=== PATIENT | male | born 1985 | race Caucasian/White ===

== ENCOUNTER 2020-09-02 01:30 | Inpatient (IN) | payer MEDICAID ==
[~2020-09-02] VITALS: Ht 167.6 cm; Wt 55.7 kg
--- NOTE | 2020-09-02 01:53 | NUR ---
Pt states having mild abd pain for the last 2 days. Pt states tonight pain got a lot worse, had N/V and came to ER. EMS gave 100 fent and 5mg of Morhine with minimal relief. Pt with IV in place. Warm blanket given. Pt on monitor.
[2020-09-02] MEDS ORDERED: MORPHINE SULFATE 4 MG/ML, 1ML IVPush PRN (02:00)
[2020-09-02] MEDS ORDERED: ONDANSETRON 2MG/ML, 2ML IVPush ONE (02:00)
[2020-09-02] MEDS ORDERED: MORPHINE SULFATE 4 MG/ML, 1ML ONE (02:11)
[2020-09-02] MEDS ORDERED: ONDANSETRON 2MG/ML, 2ML ONE ×2 (02:11→17:15)
--- NOTE | 2020-09-02 02:24 | NUR ---
Pt back from CT. Pt medicated per order for pain. Pt unable to provide UA at this time. Will continue to monitor. Pt on monitor.
[2020-09-02 02:26] LABS: BASOPHILS % (AUTO) 1 % (0-1); EOSINOPHILS % (AUTO) 1 % (1-7); LYMPHOCYTES % (AUTO) 23 % (22-44); MEAN CORPUSCULAR HEMOGLOBIN 29.7 pg (27.5-34.5); MEAN CORPUSCULAR HGB CONC 33.4 g/dL (33.2-36.2); MONOCYTES % (AUTO) 8 % (2-9); NEUTROPHILS % (AUTO) 67 % (42-75); PLATELET COUNT 341 x10^3/uL (130-400); RED BLOOD COUNT 4.63 x10^6/uL (4.38-5.82)
[2020-09-02 02:27] LABS: MD NO
[2020-09-02 02:36] LABS: ALANINE AMINOTRANSFERASE 38 U/L (12-78); ALBUMIN 3.5 g/dL (3.4-5.0); ANION GAP 6 mmol/L (5-15); CALCIUM 8.8 mg/dL (8.5-10.1); CHLORIDE 108 mmol/L (98-107); CREATININE 0.89 mg/dL (0.7-1.3)
[2020-09-02 02:38] LABS: ALKALINE PHOSPHATASE 81 U/L (45-117); BILIRUBIN,TOTAL 0.2 mg/dL (0.2-1.0); TOTAL PROTEIN 7.3 g/dL (6.4-8.2)
--- NOTE | 2020-09-02 03:26 | NUR ---
Pt stood at bedside and used urinal. UA sent to lab. Pt back in bed and on monitor.
[2020-09-02 03:27] LABS: MICROSCOPIC AUTO
--- NOTE | 2020-09-02 03:51 | NUR ---
Pt states pain has subsided. Just has some pressure. Pt calm in bed. Will monitor.
--- NOTE | 2020-09-02 04:59 | NUR ---
attempt x 1 to call report. No answer
[2020-09-02] MEDS ORDERED: HYDROmorphone 1 MG/ML, 1ML INJ IVPush PRN ×2 (05:00→17:00)
[2020-09-02] MEDS ORDERED: ONDANSETRON 2MG/ML, 2ML IVPush PRN ×2 (05:00→05:30)
--- NOTE | 2020-09-02 05:13 | NUR ---
Report to Kayli BRUNSON .
[2020-09-02] MEDS ORDERED: PLEASE ENTER ALLERGIES MC SCH ×2 (05:30)
[2020-09-02] MEDS ORDERED: ACETAMINOPHEN 325 MG TABLET PO PRN ×2 (05:30→17:00)
[2020-09-02] MEDS ORDERED: KETOROLAC 30 MG/1 ML IV PRN (05:30)
[2020-09-02] MEDS ORDERED: CEFTRIAXONE PMX 2GM/50ML 50 ML IV SCH (05:30)
[2020-09-02 05:48] VITALS: BP 118/73
[2020-09-02] MEDS: HYDROmorphone 2 MG/ML, 1ML IVPush PRN ×3 (05:57→14:11)
[2020-09-02] MEDS: LACTATED RINGERS 1,000 ML IV SCH ×2 (05:57→14:16)
[2020-09-02 06:45] VITALS: BP 117/85
[2020-09-02] MEDS ORDERED: SENNA/DOCUSATE TABLET PO SCH (09:00)
[2020-09-02 09:59] VITALS: BP 118/73
[2020-09-02] MEDS ORDERED: NICO-430 PERC (10:39)
[2020-09-02 12:55] VITALS: BP 111/73
[2020-09-02] MEDS ORDERED: FENTANYL PF 100 MCG/2ML ONE ×2 (15:19→17:59)
[2020-09-02] MEDS ORDERED: MIDAZOLAM 1 MG/ML, 2ML ONE (15:19)
[2020-09-02] MEDS ORDERED: CHLORHEXIDINE 15 ML UDC MM ONE (16:00)
[2020-09-02] MEDS ORDERED: MEPERIDINE/PF 25MG/0.5ML IVPush PRN (17:00)
[2020-09-02] MEDS ORDERED: LORazepam 2 MG/ML, 1ML IVPush PRN (17:00)
[2020-09-02] MEDS ORDERED: PROMETHAZINE 25 MG/ML, 1ML IVPush PRN (17:00)
[2020-09-02] MEDS ORDERED: ALBUTEROL SULFATE 2.5 MG/3 ML NPPB PRN (17:00)
[2020-09-02] MEDS ORDERED: LABETALOL 5MG/ML, 20ML IV PRN (17:00)
[2020-09-02] MEDS ORDERED: DEXAMETHASONE 4 MG/ML, 1ML ONE (17:15)
[2020-09-02] MEDS ORDERED: PROPOFOL 10 MG/ML, 20ML ONE (17:15)
[2020-09-02] MEDS ORDERED: LIDOCAINE-MPF 2% ,5ML ONE (17:15)
[2020-09-02] MEDS ORDERED: OXYcodone 5 MG/5 ML ORAL.SOL UDC ONE ×2 (17:59→18:36)
[2020-09-02] MEDS ORDERED: ACETAMINOPHEN 650 MG/20.3 ML UDC ONE (18:00)
[2020-09-02] MEDS: FENTANYL PF 100 MCG/2ML IV PRN ×2 (18:01→18:28)
[2020-09-02] MEDS: OXYcodone 5 MG/5 ML ORAL.SOL UDC PO PRN ×2 (18:17→18:38)
[2020-09-02 19:57] VITALS: BP 133/76
[2020-09-02] MEDS ORDERED: CEFD300C37 PO (20:53)
== END 2020-09-02 21:20 | disposition home or self-care (01) | DRG 661 ==
LOC: ED 02:28 → EDIP 04:41 → 3N 05:18 → 4NE 19:55
PROVIDERS: ADMIT Family Medicine; ATTEND Internal Medicine
PROC: 0TC78ZZ Extirpation of Matter from Left Ureter, Via Natural or Artificial Opening Endoscopic (ICD-10-PCS; 2020-09-02)
PROC: 0T778DZ Dilation of Left Ureter with Intraluminal Device, Via Natural or Artificial Opening Endoscopic (ICD-10-PCS; principal; 2020-09-02 16:15)
DX: N13.2 Hydronephrosis with renal and ureteral calculous obstruction (principal); Z20.822 Contact with and (suspected) exposure to COVID-19; F12.90 Cannabis use, unspecified, uncomplicated; F17.210 Nicotine dependence, cigarettes, uncomplicated; I87.8 Other specified disorders of veins
CPT/HCPCS: 36415; 74018; 76000; 96374; 99285; J3490; 74176; 80053; 81001; 83690; 85025; 87086; 87635; G0378; J0696; J1100; J1170; J1885; J2250; J2405; J2704; J3010; C1758; C1769; C2617; J2270; J7120

== ENCOUNTER 2020-09-03 02:42 | Emergency (ER) | payer MEDICAID ==
[~2020-09-03] VITALS: Ht 167.6 cm; Wt 63.0 kg
[~2020-09-03 02:42] MED LIST: CEFD300C37 PO; NICO-430 PERC
--- NOTE | 2020-09-03 03:23 | NUR ---
PT HERE FOR KIDNEY STONES. PT LEFT AMA LAST NIGHT DUE TO CHILDCARE ISSUES. PT BACK DUE TO PAIN. VSS. PT IN NAD. CALL LIGHT IN REACH
[2020-09-03] MEDS ORDERED: ONDANSETRON 2MG/ML, 2ML ONE (03:56)
[2020-09-03] MEDS ORDERED: MORPHINE SULFATE 4 MG/ML, 1ML ONE ×2 (03:57→07:13)
[2020-09-03] MEDS ORDERED: ONDANSETRON 2MG/ML, 2ML IVPush ONE (04:00)
[2020-09-03] MEDS: MORPHINE SULFATE 4 MG/ML, 1ML IVPush PRN ×2 (04:00→07:17)
--- NOTE | 2020-09-03 04:02 | NUR ---
PIV PLACED. LABS DRAWN AND SENT. PT MDICATED FOR PAIN AND NAUSEA. PT TO US.
[2020-09-03 04:08] LABS: BASOPHILS % (AUTO) 0 % (0-1); EOSINOPHILS % (AUTO) 0 % (1-7); LYMPHOCYTES % (AUTO) 9 % (22-44); MEAN CORPUSCULAR HGB CONC 33.8 g/dL (33.2-36.2); MEAN PLATELET VOLUME 7.3 fL (7.4-10.4); MONOCYTES % (AUTO) 2 % (2-9); NEUTROPHILS % (AUTO) 88 % (42-75); PLATELET COUNT 357 x10^3/uL (130-400); RED BLOOD COUNT 4.51 x10^6/uL (4.38-5.82); RED CELL DISTRIBUTION WIDTH 13.2 % (9.4-14.8)
[2020-09-03 04:16] LABS: ALANINE AMINOTRANSFERASE 38 U/L (12-78); ALBUMIN 3.4 g/dL (3.4-5.0); ANION GAP 6 mmol/L (5-15); CALCIUM 8.9 mg/dL (8.5-10.1); CHLORIDE 106 mmol/L (98-107); CREATININE 0.83 mg/dL (0.7-1.3)
[2020-09-03 04:19] LABS: ALKALINE PHOSPHATASE 84 U/L (45-117); BILIRUBIN,TOTAL 0.2 mg/dL (0.2-1.0); TOTAL PROTEIN 7.4 g/dL (6.4-8.2)
[2020-09-03 04:31] LABS: MD NO
--- NOTE | 2020-09-03 04:53 | NUR ---
PT BACK FROM CT. PT RESTING VSS. CALL LIGHT IN REACH
--- NOTE | 2020-09-03 05:42 | NUR ---
pt still hasnt produced a ua. Pt says "it will hurt if I pee". Pt educated on the need for ua. updated thatr pt hasnt urinated. pt resting in nad. Call light in reach
[2020-09-03 06:32] LABS: MICROSCOPIC INDICATED
--- NOTE | 2020-09-03 06:52 | NUR ---
REPORT TO DOROTHY BRUNSON
--- NOTE | 2020-09-03 07:08 | NUR ---
Recieved report from NANNETTE Lira. Pt sitting up in bed, tearful. Rating pain a 7/10 in the LLQ flank area. POC discussed with pt.
--- NOTE | 2020-09-03 07:23 | NUR ---
Pt medicated for pain per MAR
[2020-09-03 07:51] VITALS: BP 140/80
== END 2020-09-03 07:54 | disposition home or self-care (01) ==
LOC: ED 03:10
DX: N23 Unspecified renal colic (principal); R31.9 Hematuria, unspecified; F17.210 Nicotine dependence, cigarettes, uncomplicated
CPT/HCPCS: 36415; 74018; 76770; 80053; 81001; 83690; 85025; 87086; 96374; 96375; 96376; 99285; 99406; J2270; J2405